=== PATIENT | male | born 1970 | race Asian ===

== ENCOUNTER 2019-06-18 05:50 | Day surgery (SDC) | payer OTHER ==
[~2019-06-18] VITALS: Ht 165.1 cm; Wt 60.0 kg
[2019-06-18] MEDS ORDERED: BENZOCAINE 20% 50 MCG/SPRAY 57 GM TP ONE (05:51)
[2019-06-18] MEDS ORDERED: LIDOCAINE 2% 30 ML JELLY TP ONE (05:51)
[2019-06-18] MEDS ORDERED: ALBUTEROL SULFATE 2.5 MG/0.5 ML NEB SOLUTION NEB ONE (05:51)
[2019-06-18] MEDS ORDERED: SODIUM CHLORIDE 0.9% 1,000 ML IV ONE ×2 (05:54→06:30)
[2019-06-18] MEDS ORDERED: MULT9LIQ6 PO (07:13)
[2019-06-18] MEDS ORDERED: VITA-328 PO (07:13)
[2019-06-18] MEDS ORDERED: ESCI10TA PO (07:13)
[2019-06-18] MEDS ORDERED: BECL10.62 IH (07:13)
[2019-06-18] MEDS ORDERED: MIDAZOLAM HCL 2 MG/2 ML VIAL ONE (08:11)
[2019-06-18] MEDS ORDERED: FentaNYL CITRATE-PF 100 MCG/2 ML VIAL ONE (08:11)
[2019-06-18] MEDS ORDERED: MethylPREDNISolone SOD SUCC 125 MG/2 ML VIAL IVP ONE (08:45)
[2019-06-18] MEDS ORDERED: OXYGEN THERAPY IH SCH (20:00)
== END 2019-06-18 10:05 | disposition home or self-care (01) ==
LOC: SURGERY 05:50
PROVIDERS: ATTEND Internal Medicine Critical Care Medicine
DX: R05 Cough (principal); J38.4 Edema of larynx; B37.0 Candidal stomatitis; J98.8 Other specified respiratory disorders; J45.909 Unspecified asthma, uncomplicated; F41.9 Anxiety disorder, unspecified; Z87.01 Personal history of pneumonia (recurrent); Z87.891 Personal history of nicotine dependence; Z72.89 Other problems related to lifestyle; Z91.018 Allergy to other foods; Z79.899 Other long term (current) drug therapy; Z98.890 Other specified postprocedural states
CPT/HCPCS: 31623; 31624; 71045; 87015; 87070; 87077; 87101; 87186; 87205; 87206; 87220; 88108; 88312; J2250; J2930; J3010; J7030